=== PATIENT | female | born 1985 | race African-American/Black ===

== ENCOUNTER 2018-08-11 16:11 | Emergency (ER) | payer SELFPAY ==
[~2018-08-11] VITALS: Ht 165.1 cm; Wt 68.2 kg
[2018-08-11 17:18] VITALS: BP 110/70; Ht 165.1 cm; Wt 68.2 kg
[2018-08-11 17:49] LABS: BASOPHILS 0.6 % (0-2); HEMATOCRIT 39.6 % (36.0-48.0); HEMOGLOBIN 14.1 g/dL (12-16); IMMATURE GRANULOCYTES 0.2 % (0-5); LYMPHOCYTES 35.1 % (15-50); MCH 27.9 pg (26.0-34.0); MCHC 35.6 g/dL (31.0-37.0); MCV 78.3 fL (80.0-100.0); MEAN PLATELET VOLUME 11.1 fL (7.4-10.4); MONOCYTES 8.6 % (2-11); NEUTROPHILS 52.5 % (40-80); PLATELET COUNT 289 10x3/uL (130-400); RBC 5.06 10x6/uL (4.00-5.40); RDW 14.6 % (11.5-14.5); WBC 10.6 10x3/uL (4.8-10.8)
[2018-08-11 18:11] LABS: ALBUMIN 3.5 g/dL (3.4-5.0); ALKALINE PHOSPHATASE 61 U/L (46-116); ALT (SGPT) 17 U/L (10-68); BILIRUBIN - TOTAL 0.59 mg/dL (0.2-1.3); CALC OSMOLALITY 275 mosm/kg (275-300); CALCIUM 8.9 mg/dL (8.5-10.1); CARBON DIOXIDE 25.1 mmol/L (21.0-32.0); CHLORIDE - SERUM 104 mmol/L (98-107); CREATININE - SERUM 0.8 mg/dL (0.6-1.3); GLUCOSE 95 mg/dL (74-106); PROTEIN - SERUM 7.4 g/dL (6.4-8.2); SODIUM 139 mmol/L (136-145); UREA NITROGEN 6 mg/dL (7-18); eGFR NON AFRICAN AMERICAN 87 mL/min (90-120)
[2018-08-11] MEDS ORDERED: FEXOFENADINE H180 MG PO (19:25)
[2018-08-11] MEDS ORDERED: KEFLEX500 MG PO (19:25)
== END 2018-08-18 06:54 | disposition home or self-care (01) ==
LOC: D.ER 16:11
PROVIDERS: Family Medicine
DX: J06.9 Acute upper respiratory infection, unspecified (principal); R05 Cough; F17.200 Nicotine dependence, unspecified, uncomplicated

== ENCOUNTER 2019-08-17 19:23 | Emergency (ER) | payer MEDICAID ==
[~2019-08-17] VITALS: Ht 165.1 cm; Wt 61.4 kg
[~2019-08-17 19:23] MED LIST: FEXOFENADINE H180 MG PO; KEFLEX500 MG PO
[2019-08-17 19:25] VITALS: BP 108/68; Ht 165.1 cm; Wt 61.4 kg
[2019-08-17] MEDS ORDERED: LITHIUM CARBON150 MG PO (19:26)
[2019-08-17] MEDS ORDERED: SEROQUEL25 MG (19:26)
[2019-08-17 20:10] LABS: BASOPHILS 0.3 % (0-2); EOSINOPHILS 1.8 % (0-7); HEMATOCRIT 36.8 % (36.0-48.0); HEMOGLOBIN 13.2 g/dL (12-16); IMMATURE GRANULOCYTES 0.3 % (0-5); LYMPHOCYTES 28.2 % (15-50); MCH 28.3 pg (26.0-34.0); MCHC 35.9 g/dL (31.0-37.0); MONOCYTES 12.2 % (2-11); NEUTROPHILS 57.2 % (40-80); PLATELET COUNT 292 10x3/uL (130-400); RBC 4.66 10x6/uL (4.00-5.40); RDW 14.1 % (11.5-14.5); WBC 14.7 10x3/uL (4.8-10.8)
[2019-08-17 20:20] LABS: ANION GAP 11.1 mmol/L (8-16); CALCIUM 8.6 mg/dL (8.5-10.1); CARBON DIOXIDE 28.5 mmol/L (21.0-32.0); POTASSIUM - SERUM 3.6 mmol/L (3.5-5.1)
[2019-08-17 20:35] LABS: ALBUMIN 3.2 g/dL (3.4-5.0); BILIRUBIN - TOTAL 0.72 mg/dL (0.2-1.3); MAGNESIUM - SERUM 1.9 mg/dL (1.8-2.4); PROTEIN - SERUM 7.5 g/dL (6.4-8.2); THYROID STIMULATING HORMONE 0.69 uIU/mL (0.36-3.74)
== END 2019-08-17 22:18 | disposition home or self-care (01) ==
LOC: D.ER 19:23
PROVIDERS: Emergency Medicine
DX: F23 Brief psychotic disorder (principal); R44.0 Auditory hallucinations

== ENCOUNTER 2019-12-20 11:06 | Emergency (ER) | payer OTHER ==
[~2019-12-20] VITALS: Ht 165.1 cm; Wt 72.4 kg
[~2019-12-20 11:06] MED LIST changes: +LITHIUM CARBON150 MG PO; +SEROQUEL25 MG
[2019-12-20 11:20] VITALS: Ht 165.1 cm; Wt 72.4 kg
[2019-12-20 11:58] LABS: BASOPHILS 0.5 % (0-2); EOSINOPHILS 2.3 % (0-7); HEMATOCRIT 42.6 % (36.0-48.0); IMMATURE GRANULOCYTES 0.1 % (0-5); LYMPHOCYTES 45.4 % (15-50); MCH 28.5 pg (26.0-34.0); MCHC 35.2 g/dL (31.0-37.0); MEAN PLATELET VOLUME 10.6 fL (7.4-10.4); MONOCYTES 8.3 % (2-11); NEUTROPHILS 43.4 % (40-80); PLATELET COUNT 251 10x3/uL (130-400); RBC 5.26 10x6/uL (4.00-5.40); RDW 14.5 % (11.5-14.5); WBC 7.4 10x3/uL (4.8-10.8)
[2019-12-20 12:12] LABS: CALC OSMOLALITY 273 mosm/kg (275-300); CALCIUM 9.1 mg/dL (8.5-10.1); CARBON DIOXIDE 27.2 mmol/L (21.0-32.0); CHLORIDE - SERUM 104 mmol/L (98-107); CREATININE - SERUM 0.7 mg/dL (0.6-1.3); GLUCOSE 89 mg/dL (74-106); POTASSIUM - SERUM 3.6 mmol/L (3.5-5.1); SODIUM 138 mmol/L (136-145); UREA NITROGEN 9 mg/dL (7-18); eGFR NON AFRICAN AMERICAN > 90 mL/min (90-120)
[2019-12-20 12:18] LABS: ALBUMIN 3.9 g/dL (3.4-5.0); ALKALINE PHOSPHATASE 80 U/L (30-120); ALT (SGPT) 15 U/L (10-68); BILIRUBIN - TOTAL 0.59 mg/dL (0.2-1.3); MAGNESIUM - SERUM 1.8 mg/dL (1.8-2.4); PROTEIN - SERUM 8.4 g/dL (6.4-8.2)
[2019-12-20 12:26] LABS: HCG URINE NEGATIVE (NEGATIVE)
[2019-12-20 12:30] LABS: UDS - AMPHET NEGATIVE QUAL (NEGATIVE); UDS - BARB NEGATIVE QUAL (NEGATIVE); UDS - BENZO NEGATIVE QUAL (NEGATIVE); UDS - COCAINE NEGATIVE QUAL (NEGATIVE); UDS - OPIATE NEGATIVE QUAL (NEGATIVE); UDS - PCP NEGATIVE QUAL (NEGATIVE); UDS - THC NEGATIVE QUAL (NEGATIVE)
[2019-12-20 12:46] LABS: BILIRUBIN NEGATIVE (NEGATIVE); GLUCOSE NEGATIVE (NEGATIVE); KETONE NEGATIVE (NEGATIVE); NITRITE NEGATIVE (NEGATIVE); SPECIFIC GRAVITY 1.015 (1.005-1.020); UROBILINOGEN NORMAL (NORMAL); WHITE CELLS - URINE 0-5 /hpf (NEGATIVE)
[2019-12-20 12:47] LABS: BACTERIA MODERATE /hpf (NEGATIVE); RED CELLS - URINE RARE /hpf (0-5)
--- NOTE | 2019-12-20 13:56 | NUR ---
DR FLETCHER NOTIFIED AND REVIEWED PT'S BEHAVIOR AND ASSESSMENT. PT IS A LOW RISK. RESOURCES SALOMÓN AND SHE VERBALIZES UNDERSTANDING.
--- NOTE | 2019-12-20 13:58 | NUR ---
PATIENT STATES SHE IS NOT SUICIDASL AND HAS NOT BEEN SUICIDAL IN 10 YEARS. PT STATES SHE ATTEMPTED SUICIDE 10 YEARS AGO BY CHOKING HERSELF. SHE REPEATEDLY KEEPS SAYING SHE IS NOT SUICIDAL BUT STAFF WANTS HER TO BE KILL HERSELF BECAUSE STAFF KEEPS ASKING HER SUICIDAL QUESTIONS. STATES SHE IS NOT GOING TO ANSWER ANY [facility] QUESTIONS. PATIENT IS HALLUCINATING AND TALKING TO UNSEEN PEOPLE. ALSO STATES THE DR NEEDS TO HURRY UP AND COME IN HER ROOM TO GET THE BED BUGS OUT OF HER EAR AND KEEP THE REST OF THE BUGS OFF HER BODY. PT IS VERY CONFUSED.
[2019-12-20 16:13] VITALS: BP 106/64
== END 2019-12-20 19:47 ==
LOC: D.ER 11:06
PROVIDERS: Family Medicine
DX: F31.9 Bipolar disorder, unspecified (principal); R44.0 Auditory hallucinations